=== PATIENT | female | born 1945 | race Caucasian/White ===

== ENCOUNTER 2017-01-25 09:56 | Emergency (ER) | payer MEDICARE, BC ==
[2017-01-25 10:57] VITALS: BP 135/71
--- NOTE | 2017-01-25 12:06 | RAD ---
HISTORY: Trauma, blurred vision COMPARISONS: None TECHNIQUE: Multiple contiguous axial CT scans were obtained of the head without intravenous contrast. FINDINGS: The study is limited by patient motion artifact. HEMORRHAGE/INFARCT: There is no hemorrhage or acute infarct. MASSES/SHIFT: There is no mass or shift. EXTRA-AXIAL SPACES: There are no extra-axial fluid collections. SULCI AND VENTRICLES: The sulci and ventricles are normal in size and position for the patient's stated age. CEREBRUM: There is a small, chronic lacunar infarct of the right thalamus. BRAINSTEM: There are no focal parenchymal abnormalities. CEREBELLUM: There are no focal parenchymal abnormalities. VESSELS: The vessels are grossly normal. PARANASAL SINUSES: The paranasal sinuses are clear. ORBITS: The orbits are unremarkable. BONES AND SOFT TISSUE: No bone or soft tissue abnormalities are noted. OTHER: None IMPRESSION: LIMITED STUDY. NO ACUTE INTRACRANIAL PATHOLOGY.
--- NOTE | 2017-01-25 12:12 | RAD ---
INDICATION: Fell backwards on steps yesterday. Pain, blurry vision. COMPARISON: November 20, 2010 MRI. TECHNIQUE: Multidetector CT images foramen magnum to lung apices without contrast. Multiplanar reformation. REPORT: Motion artifact degrades image quality. 3 mm degenerative C3-C4 anterolisthesis new compared with the 2011 exam. Negative for facet subluxation at any level. Negative for vertebral body or posterior element fracture. Negative for paravertebral hematoma. Diffuse degenerative spondylosis and facet joint osteoarthritis. Disc space narrowing is severe at C4-C5 through C6-C7 and less marked at the remaining levels. At C3-C4 the 3 mm degenerative anterolisthesis results in irregular contour of the central canal without significant stenosis. At C5-C6 and mild dorsal disc osteophyte complex results in mild impression on the ventral margin of the thecal sac. Uncinate process spurring and facet joint osteoarthritis results in mild LEFT foraminal stenosis. At C6-C7 uncinate process spurring and facet joint osteoarthritis results in mild RIGHT foraminal stenosis. IMPRESSION: 1. Negative for cervical spine fracture or facet subluxation. 2. 3 mm degenerative C3-C4 anterolisthesis new compared with the 2011 exam. 3. Multilevel degenerative spondylosis and facet joint osteoarthritis as described with significant interval progression compared with the 2011 MRI.
--- NOTE | 2017-01-25 12:51 | RAD ---
HISTORY: Subacute trauma, pain to sternum COMPARISONS: February 28, 2014 VIEWS: 4: Frontal dual-energy and lateral views of the chest. FINDINGS: CARDIOMEDIASTINAL SILHOUETTE: The cardiomediastinal silhouette is normal. KISHA: The kisha are normal. PLEURA: The costophrenic angles are sharp. No pleural abnormalities are noted. LUNG PARENCHYMA: There is hyperinflation with flattening of the diaphragm and expansion of the AP diameter of the chest. ABDOMEN: The upper abdomen is clear. There is no subphrenic gas. BONES AND SOFT TISSUES: There is a scoliotic curvature of the spine. Degenerative changes are noted. There is postsurgical change to the left shoulder. OTHER: None. IMPRESSION: HYPERINFLATION, CONSISTENT WITH COPD. NO ACTIVE CARDIOPULMONARY DISEASE. SCOLIOSIS.
--- NOTE | 2017-01-25 12:53 | RAD ---
HISTORY: Trauma, history of right hip arthroplasty COMPARISONS: CT dated February 27, 2014 VIEWS: 1, Single frontal view of the pelvis FINDINGS: BONE DENSITY: Normal. BONES: The patient is status post internal fixation of the right femur. There is minimal heterotopic bone formation. There is periprosthetic lucency along the fixation hardware. JOINTS: There is no arthropathy. ALIGNMENT: There is no dislocation. SOFT TISSUES: Unremarkable. OTHER FINDINGS: There is a scoliotic curvature of the spine with degenerative changes of the spine IMPRESSION: 1. STATUS POST INTERNAL FIXATION OF THE RIGHT FEMUR. 2. THERE IS PERIPROSTHETIC LUCENCY ALONG THE FIXATION HARDWARE CONSISTENT WITH LOOSENING. 3. NO ACUTE OSSEOUS INJURY. IF SYMPTOMS PERSIST, RECOMMEND REPEAT IMAGING.
--- NOTE | 2017-01-25 13:25 | ED ---
Yudy Ansari Thomas, scribed for Chung Grey MD on 01/25/17 at 1031 . Lower Extremity - HPI Summary HPI Summary: The pt is a 71 y/o F with Hx of Parkinsons disease presenting to the ED c/o L hip, sternum pain, and blurred vision s/p falling backwards on brick steps yesterday. She says that she missed a step when at the bottom of the stairs, causing her to fall and land on her head and left hip. She did not fall down multiples steps. The pt rates the pain /10. The pain is aggravated by lying for long periods of time and alleviated by nothing. The patient has treated the pain with Oxycodone FREELANCE DISPLAYER. She denies LOC from this fall. She does report a CHE earlier this AM as well as neck pain. However, she does note that in terms of her mental function, things feel fuzzy and things dont seem clear. She reports falling 6 weeks ago as well as many falls prior to that. Since the fall 6 weeks ago, she has experienced sternum pain, and that pain was exacerbated by the fall yesterday. PMHx: Parkinsons disease, spinal stenosis, scoliosis, back pain, R hip Fx. PSHx: L3-L4 laminectomy (2013), bursa surgery (2004). SHx: former smoker, occasional alcohol use, no illicit drug use. FHx: pulmonary fibrosis, dementia. She is accompanied by a younger male family member. She says that she is in the process of moving into assisted living due to her frequent falls. - History of Current Complaint Chief Complaint: EDBackInjuryPain Stated Complaint: FALL/BLURRY VISION/PAIN Time Seen by Provider: 01/25/17 10:18 Hx Obtained From: Patient, Family/Supervisor Shearing - younger male family member in the room Mechanism Of Injury: Fall From A Standing Position Onset of Pain: Immediate Onset/Duration: Days - fall was yesterday Severity Currently: Severe Pain Intensity: 7 Pain Scale Used: 0-10 Numeric Timing: Constant Location: Is Discrete @ - L hip, sternum Associated Signs And Symptoms: Positive: Other - POS: Blurred visoin, L hip pain , "things feel fuzzy" in her head, CHE; NEG: LOC Aggravating Factor(s): Other - Lying supine for extended periods Alleviating Factor(s): Nothing - Allergies/Home Medications Allergies/Adverse Reactions: Allergies Allergy/AdvReac Type Severity Reaction Status Date / Time Haloperidol [From Haldol] Allergy Unknown Verified 03/01/14 16:54 Reaction Details Metoclopramide [From Reglan] Allergy See Comment Verified 03/05/14 00:06 Quetiapine [From Seroquel] Allergy See Comment Verified 03/05/14 00:07 Risperidone [From Risperdal] Allergy Unknown Verified 03/01/14 16:54 Reaction Details antiemetics Allergy Unknown Uncoded 03/01/14 16:54 Reaction Details PMH/Surg Hx/FS Hx/Imm Hx Previously Healthy: No Endocrine/Hematology History: Reports: Hx Thyroid Disease Denies: Hx Diabetes Cardiovascular History: Denies: Hx Hypertension Respiratory History: Denies: Hx Chronic Obstructive Pulmonary Disease (COPD) History: Denies: Hx Dialysis Musculoskeletal History: Reports: Hx Back Problems - spinal stenosis, Hx Bursitis, Hx Orthopedic Injury - R hip fx 02/28, Hx Scoliosis, Other Musculoskeletal History - back pain Sensory History: Reports: Hx Contacts or Glasses Opthamlomology History: Reports: Hx Contacts or Glasses Neurological History: Reports: Hx Migraine, Other Neuro Impairments/Disorders - Parkinson's Disease Denies: Hx Dementia - Pt. complained of recent memory loss, Hx Seizures Psychiatric History: Reports: Hx Anxiety - Surgical History Surgery Procedure, Year, and Place: L3-L4 laminectomy-October 2013-[facility];. left shoulder arthroscopy x2 (2002);. "bursa" surgery (2004), trochanteric Hx Anesthesia Reactions: No Infectious Disease History: Denies: Traveled Outside the [place] in Last 30 Days - Family History Known Family History: Positive: Other - POS: pulmonary fibrosis, dementia - Social History Alcohol Use: Occasionally Alcohol Amount: 1/2 glass wine, 2-3 times per week Substance Use Type: Reports: None Smoking Status (MU): Former Smoker Type: Cigarettes Have You Smoked in the Last Year: No Review of Systems Negative: Fever Positive: Blurred Vision Positive: Other - POS: L hip pain, sternum pain Neurological: Other - POS: "feeling funny" in terms of mental function and "things don't seem clear"; NEG: LOC Positive: Headache All Other Systems Reviewed And Are Negative: Yes Physical Exam Triage Information Reviewed: Yes Vital Signs On Initial Exam: Initial Vitals Temp Pulse Resp BP Pulse Ox 98.7 F 78 16 131/93 100 01/25/17 10:03 01/25/17 10:03 01/25/17 10:03 01/25/17 10:03 01/25/17 10:03 Vital Signs Reviewed: Yes Appearance: Positive: Well-Appearing, No Pain Distress, Obese Skin: Positive: Warm, Skin Color Reflects Adequate Perfusion, Dry Head/Face: Positive: Normal Head/Face Inspection Eyes: Positive: Normal ENT: Positive: Normal ENT inspection Neck: Positive: Supple, Nontender Respiratory/Lung Sounds: Positive: Clear to Auscultation, Breath Sounds Present Cardiovascular: Positive: RRR Abdomen Description: Positive: Nontender, Soft Bowel Sounds: Positive: Present Musculoskeletal: Positive: Normal, Other - She is tender in the midline of her cervical spine. She is tender over her sacrum on the left side. Neurological: Positive: Other - She has Parkinsons movements. Psychiatric: Positive: Normal, Affect/Mood Appropriate Diagnostics - Vital Signs Vital Signs Temp Pulse Resp BP Pulse Ox 01/25/17 10:03 98.7 F 78 16 131/93 100 - Laboratory Lab Statement: Any lab studies that have been ordered have been reviewed, and results considered in the medical decision making process. - Radiology CXR Xray Interpretation: No Acute Changes - HYPERINFLATION, CONSISTENT WITH COPD. NO ACTIVE CARDIOPULMONARY DISEASE. SCOLIOSIS. ED Physician has reviewed this report and agrees. Radiology Interpretation Completed By: Radiologist XR Pelvis Xray Interpretation: No Acute Changes - 1. STATUS POST INTERNAL FIXATION OF THE RIGHT FEMUR. 2. THERE IS PERIPROSTHETIC LUCENCY ALONG THE FIXATION HARDWARE CONSISTENT WITH LOOSENING. 3. NO ACUTE OSSEOUS INJURY. IF SYMPTOMS PERSIST, RECOMMEND REPEAT IMAGING. ED Physician has reviewed this report and agrees. Radiology Interpretation Completed By: Radiologist - CT CT Brain CT Interpretation: No Acute Changes - Limited study, no acute intracranial pathology. ED Physician has reviewed this report and agrees. CT Interpretation Completed By: Radiologist CT C-Spine CT Interpretation: No Acute Changes - 1. Negative for cervical spine fracture or facet subluxation. 2. 3 mm degenerative C3-C4 anterolisthesis new compared with the 2011 exam. 3. Multilevel degenerative spondylosis and facet joint osteoarthritis as described with significant interval progression compared with the 2011 MRI. ED Physician has reviewed this report and agrees. CT Interpretation Completed By: Radiologist Lower Extremity Course/Dx - Course Course Of Treatment: Ms. León fell yesterday and had some blurriness of her vision today which is now gone. She recently fell and hurt her chest and had completely recuperated but has aggravated that. She also landed on her left buttock and that hurts and is tender and her neck is a little tender. Her CT of the head and neck showed no acute injury but clearly a lot of DJD as did her pelvic plain film. CXR showed no acute pathology. She takes ibuprofen and tylenol at home and I will give her tramadol for a few days. - Diagnoses Provider Diagnoses: Head injury, Cervical strain, acute Discharge - Discharge Plan Condition: Stable Disposition: HOME Prescriptions: traMADol TAB* [Ultram*] 25 mg PO Q6HR PRN #20 tab MDD 4 PRN Reason: Pain Patient Education Materials: Cervical Strain (ED), Head Injury (ED) Referrals: Hannah Gaona MD [Primary Care Provider] - If Needed Additional Instructions: Follow up with your doctor in 4-5 days if your symptoms have not improved. Return to the emergency department for any new or worsening symptoms. The documentation as recorded by the Yudy christensen Thomas accurately reflects the service I personally performed and the decisions made by , Chung Grey MD.
== END 2017-01-25 13:34 | disposition home or self-care (01) ==
LOC: ED 09:56
DX: S09.90XA Unspecified injury of head, initial encounter (principal); S16.1XXA Strain of muscle, fascia and tendon at neck level, initial encounter; Z87.891 Personal history of nicotine dependence; G20 Parkinson's disease; W19.XXXA Unspecified fall, initial encounter; Y92.9 Unspecified place or not applicable
CPT/HCPCS: 70450; 71020; 72125; 72170; 99282

== ENCOUNTER 2017-03-28 17:22 | Emergency (ER) | payer MEDICARE, BC ==
[2017-03-28] MEDS ORDERED: NS 0.9% 1000 ML* 1,000 ML IV ONE (18:50)
[2017-03-28] MEDS ORDERED: Ondansetron INJ* 2 MG/ML VIAL IV ONE (19:11)
[2017-03-28 19:18] LABS: Hematocrit 34 % (35-47); Hemoglobin 11.7 g/dl (12.0-16.0); Mean Corpuscular HGB Conc 35 g/dl (31-36); Mean Corpuscular Hemoglobin 33 pg (27-31); Mean Corpuscular Volume 95 fL (80-97); Mean Platelet Volume 8 um3 (7.4-10.4); Red Blood Count 3.55 10^6/ul (4.0-5.4); Red Cell Distribution Width 13 % (10.5-15); White Blood Count 6.2 10^3/ul (3.5-10.8)
[2017-03-28 19:30] LABS: ALT 3 U/L (7-52); AST 21 U/L (13-39); Alkaline Phosphatase 124 U/L (34-104); Anion Gap 6 mmol/L (2-11); BUN/Creatinine Ratio 27.6 (8-20); Blood Urea Nitrogen 16 mg/dL (6-24); CO2 Carbon Dioxide 25 mmol/L (22-32); Calcium 9.1 mg/dL (8.6-10.3); Chloride 95 mmol/L (101-111); EGFR African American 132.6 (>60); EGFR Non-African American 103.1 (>60); Globulin 2.6 g/dL (2-4); Glucose 125 mg/dL (70-100); Lipase < 10 U/L (11.0-82.0); Potassium 3.9 mmol/L (3.5-5.0); Sodium 126 mmol/L (133-145); Total Protein 6.6 g/dL (6.4-8.9)
[2017-03-28 19:37] LABS: Troponin I 0.05 ng/mL (<0.04)
[2017-03-28] MEDS ORDERED: Iohexol 300* (CONTRAST) 10 ML SDV IV ONE (20:01)
[2017-03-28 20:55] LABS: Urine Bacteria 1+ (Absent); Urine Bilirubin Negative (Negative); Urine Glucose Negative (Negative); Urine Nitrite Negative (Negative)
--- NOTE | 2017-03-28 21:13 | RAD ---
INDICATION: Diffuse abdominal pain and tenderness COMPARISON: None TECHNIQUE: Axial source images were obtained from the hemidiaphragms to the symphysis pubis following administration of oral and intravenous contrast. 61 mL Omnipaque 300 was utilized. Coronal and sagittal reconstructed images were acquired. Lung bases: The lung bases are clear. Liver: The liver is normal in size. There are no masses. There is no ductal dilatation. Gallbladder: There are no calcified gallstones. There is no evidence of wall thickening or pericholecystic fluid. Spleen: The spleen is normal in size. There are no masses. Pancreas: Limited evaluation. No focal pancreatic abnormalities. No ductal dilatation.. Adrenal glands: There is no evidence of adrenal mass. Kidneys: The kidneys are normal in size and position. There are prompt nephrograms and there is prompt excretion bilaterally. There are no renal parenchymal masses. There is no evidence of nephrolithiasis. Adenopathy: There is no evidence of adenopathy by size criteria. Fluid collections: There are no free or localized fluid collections. Vessels:There are no significant atherosclerotic changes involving the aorta. There is no focal aneurysm. The iliac vessels are normal in caliber. The IVC appears normal. GI tract: There are no acute CT bowel findings. There is a moderate-sized hiatal hernia. The upper GI tract is otherwise unremarkable. There is moderate retained stool. There are no obstructive findings. Pelvic organs: The uterus and adnexa appear normal Bladder: There are no bladder masses. There is mild bladder prolapse. Abdominal and pelvic soft tissues: The extraperitoneal abdominal and pelvic soft tissues appear normal.. Osseous structures: There are no acute osseous findings. There is a prominent levoscoliosis. There is right femoral nailing. Other: None IMPRESSION: NO ACUTE CT FINDINGS. NO MASS OR INFLAMMATORY CHANGES. THERE IS MODERATE RETAINED STOOL. THERE IS A MODERATE-SIZED HILAR HERNIA.
[2017-03-28] MEDS ORDERED: Levofloxacin TAB* 500 MG PO ONE (21:19)
--- NOTE | 2017-03-28 21:27 | ED ---
Yon Ansari Abhishek, scribed for Bartolome Salvador on 03/28/17 at 1946 . Abdominal Pain/Female - HPI Summary HPI Summary: This patient is a 71 year old F presenting to [facility] with a chief complaint of abd pain since 3 days ago. The patient rates the pain 8/10 in severity. Symptoms aggravated by nothing. Symptoms alleviated by nothing. Patient reports nausea, and vomiting since today. Patient denies CP. - History of Current Complaint Chief Complaint: EDAbdPain Stated Complaint: N/V Time Seen by Provider: 03/28/17 18:03 Hx Obtained From: Patient Timing: Days - 3 days Severity Initially: Severe Severity Currently: Severe Pain Intensity: 8 Pain Scale Used: 0-10 Numeric Location: Diffuse - center abd Aggravating Factor(s): Nothing Alleviating Factor(s): Nothing Associated Signs and Symptoms: Positive: Nausea, Vomiting. Negative: Chest Pain Allergies/Adverse Reactions: Allergies Allergy/AdvReac Type Severity Reaction Status Date / Time Haloperidol [From Haldol] Allergy Unknown Verified 03/01/14 16:54 Reaction Details Metoclopramide [From Reglan] Allergy See Comment Verified 03/05/14 00:06 Quetiapine [From Seroquel] Allergy See Comment Verified 03/05/14 00:07 Risperidone [From Risperdal] Allergy Unknown Verified 03/01/14 16:54 Reaction Details antiemetics Allergy Unknown Uncoded 03/01/14 16:54 Reaction Details PMH/Surg Hx/FS Hx/Imm Hx Endocrine/Hematology History: Reports: Hx Thyroid Disease Denies: Hx Diabetes Cardiovascular History: Denies: Hx Hypertension Respiratory History: Denies: Hx Chronic Obstructive Pulmonary Disease (COPD) History: Denies: Hx Dialysis Musculoskeletal History: Reports: Hx Back Problems - spinal stenosis, Hx Bursitis, Hx Orthopedic Injury - R hip fx 02/28, Hx Scoliosis, Other Musculoskeletal History - back pain Sensory History: Reports: Hx Contacts or Glasses Opthamlomology History: Reports: Hx Contacts or Glasses Neurological History: Reports: Hx Migraine, Other Neuro Impairments/Disorders - Parkinson's Disease Denies: Hx Dementia - Pt. complained of recent memory loss, Hx Seizures Psychiatric History: Reports: Hx Anxiety - Surgical History Surgery Procedure, Year, and Place: L3-L4 laminectomy-October 2013-[facility];. left shoulder arthroscopy x2 (2003);. "bursa" surgery (2005), trochanteric Hx Anesthesia Reactions: No Infectious Disease History: No Infectious Disease History: Denies: Traveled Outside the [place] in Last 30 Days - Family History Known Family History: Positive: Other - POS: pulmonary fibrosis, dementia - Social History Alcohol Use: Occasionally Alcohol Amount: 1/2 glass wine, 2-3 times per week Substance Use Type: Reports: None, Prescribed Smoking Status (MU): Former Smoker Type: Cigarettes Have You Smoked in the Last Year: No Review of Systems Constitutional: Negative Eyes: Negative ENT: Negative Negative: Chest Pain Respiratory: Negative Positive: Abdominal Pain - diffuse and central, Vomiting - since today, Nausea Genitourinary: Negative Musculoskeletal: Negative Skin: Negative Neurological: Negative Psychological: Normal All Other Systems Reviewed And Are Negative: Yes Physical Exam - Summary Physical Exam Summary: Appearance: Well appearing, no pain distress Skin: warm, dry, reflects adequate perfusion Head/face: normal Eyes: EOMI, JOSE ENT: normal Neck: supple, non-tender Respiratory: CTA, breath sounds present Cardiovascular: RRR, pulses symmetrical Abdomen: diffuse tenderness Bowel: present Musculoskeletal: normal, strength/ROM intact Neuro: normal, sensory motor intact, A&Ox3 Triage Information Reviewed: Yes Vital Signs On Initial Exam: Initial Vitals BP 152/87 03/28/17 17:33 Vital Signs Reviewed: Yes - [place] Coma Scale Coma Scale Total: 15 Diagnostics - Vital Signs Vital Signs Temp Pulse Resp BP Pulse Ox 03/28/17 19:00 65 144/86 99 03/28/17 18:30 65 130/79 98 03/28/17 18:00 62 153/86 98 03/28/17 17:35 98.2 F 63 18 152/87 97 03/28/17 17:33 152/87 - Laboratory Lab Results: Lab Results 03/28/17 03/28/17 03/28/17 Range/Units 19:04 19:04 19:04 WBC 6.2 (3.5-10.8) 10^3/ul RBC 3.55 L (4.0-5.4) 10^6/ul Hgb 11.7 L (12.0-16.0) g/dl Hct 34 L (35-47) % MCV 95 (80-97) fL MCH 33 H (27-31) pg MCHC 35 (31-36) g/dl RDW 13 (10.5-15) % Plt Count 223 (150-450) 10^3/ul MPV 8 (7.4-10.4) um3 Neut % (Auto) 82.8 (38-83) % Lymph % (Auto) 11.0 L (25-47) % [place] % (Auto) 5.5 (1-9) % Eos % (Auto) 0.2 (0-6) % Baso % (Auto) 0.5 (0-2) % Absolute Neuts (auto) 5.1 (1.5-7.7) 10^3/ul Absolute Lymphs (auto) 0.7 L (1.0-4.8) 10^3/ul Absolute Monos (auto) 0.3 (0-0.8) 10^3/ul Absolute Eos (auto) 0 (0-0.6) 10^3/ul Absolute Basos (auto) 0 (0-0.2) 10^3/ul Absolute Nucleated RBC 0 10^3/ul Nucleated RBC % 0 INR (Anticoag Therapy) 0.98 (0.89-1.11) APTT 28.4 (26.0-36.3) seconds Sodium 126 L (133-145) mmol/L Potassium 3.9 (3.5-5.0) mmol/L Chloride 95 L (101-111) mmol/L Carbon Dioxide 25 (22-32) mmol/L Anion Gap 6 (2-11) mmol/L BUN 16 (6-24) mg/dL Creatinine 0.58 (0.51-0.95) mg/dL Est GFR ( Amer) 132.6 (>60) Est GFR (Non-Af Amer) 103.1 (>60) BUN/Creatinine Ratio 27.6 H (8-20) Glucose 125 H (70-100) mg/dL Calcium 9.1 (8.6-10.3) mg/dL Total Bilirubin 0.90 (0.2-1.0) mg/dL AST 21 (13-39) U/L ALT 3 L (7-52) U/L Alkaline Phosphatase 124 H (34-104) U/L Troponin I 0.05 H* (<0.04) ng/mL Total Protein 6.6 (6.4-8.9) g/dL Albumin 4.0 (3.2-5.2) g/dL Globulin 2.6 (2-4) g/dL Albumin/Globulin Ratio 1.5 (1-3) Lipase < 10 L (11.0-82.0) U/L Result Diagrams: 03/28/17 19:04 03/28/17 19:04 Lab Statement: Any lab studies that have been ordered have been reviewed, and results considered in the medical decision making process. - CT CT A/P CT Interpretation Completed By: Radiologist - CT A/P reveals NO ACUTE CT FINDINGS. NO MASS OR INFLAMMATORY CHANGES. THERE IS MODERATE RETAINED STOOL. THERE IS A MODERATE-SIZED HILAR HERNIA. ED physician has reviewed this radiology report and agrees. - EKG 1910 EKG Rhythm: Sinus Rhythm EKG Interpretation: An EKG reveals sinus rhythm, no acute changes, and 67 BPM Abdominal Pain Fem Course/Dx - Course Course Of Treatment: This patient is a 71 year old F [facility] with a chief complaint of abd pain since 3 days ago. Patient reports nausea, and vomiting since today. Patient denies CP. CT A/P reveals NO ACUTE CT FINDINGS. NO MASS OR INFLAMMATORY CHANGES. THERE IS MODERATERETAINED STOOL. THERE IS A MODERATE-SIZED HILAR HERNIA. An EKG reveals sinus rhythm no acute changes, at 1910, and 67 BPM. Patient is signed out to Dr. Sanford, pending disposition, awaiting repeat troponin. Dx is elevated troponin, UTI, and abd pain. The patient is agreeable with this plan. - Diagnoses Differential Diagnosis: Positive: Appendicitis, Diverticulitis, Peptic Ulcer Disease, Renal Colic, Urinary Tract Infection Provider Diagnoses: UTI (urinary tract infection), Abdominal pain, Elevated troponin Discharge - Discharge Plan Condition: Stable Disposition: OTHER Discharge Disposition Comment: Patient signed out to Dr. Sanford, pending disposition, awaiting repeat Trop Referrals: Hannah Gaona MD [Primary Care Provider] - The documentation as recorded by the Yon christensen Abhishek accurately reflects the service I personally performed and the decisions made by , Bartolome Salvador.
[2017-03-29 00:36] VITALS: BP 167/91
--- NOTE | 2017-03-29 03:56 | ED ---
Sapphire Ansari Edward, scribed for Evelina Sanford MD on 03/28/17 at 2321 . Progress - Progress Note Progress Note: Pt signed out by Dr. Salvador pending repeat Troponin. Repeat Troponin is the same at 0.05. Re-Evaluation - Re-Evaluation 1 Re-Evaluation Time: 23:42 Comment: Discuss plan to d/c Course/Dx - Course Course Of Treatment: This patient is a 71 year old F presenting to [facility] accompanied by_ with a chief complaint of abd pain since 3 days ago. Patient reports nausea, and vomiting since today. Patient denies CP. CT A/P reveals NO ACUTE CT FINDINGS. NO MASS OR INFLAMMATORY CHANGES. THERE IS MODERATERETAINED STOOL. THERE IS A MODERATE-SIZED HILAR HERNIA. An EKG reveals sinus rhythm no acute changes, at 1910, and 67 BPM. Patient is signed out to Dr. Sanford, pending disposition, awaiting repeat troponin. Dx is elevated troponin, UTI, and abd pain. The patient is agreeable with this plan. Repeat troponin is the same at 0.05. Pt will be d/c home. - Diagnoses Provider Diagnoses: UTI (urinary tract infection), Abdominal pain, Elevated troponin The documentation as recorded by the Sapphire christensen Edward accurately reflects the service I personally performed and the decisions made by Claribel del rosario Norma, MD.
== END 2017-03-29 00:36 | disposition home or self-care (01) ==
LOC: ED 17:22
DX: N39.0 Urinary tract infection, site not specified (principal); R10.9 Unspecified abdominal pain; R79.89 Other specified abnormal findings of blood chemistry
CPT/HCPCS: 36415; 74177; 80053; 81003; 81015; 83605; 83690; 84484; 85025; 85610; 85730; 87077; 87086; 93005; 96374; 99283; Q9967

== ENCOUNTER → 2019-07-06 13:49 | Emergency (ER) | payer MEDICARE, BC ==
[2019-07-06 14:15] LABS: ABS Lymphocytes 0.6 10^3/ul (1.0-4.8); ABS Monocytes 0.3 10^3/ul (0-0.8); ABS Neutrophils 3.4 10^3/ul (1.5-7.7); Eosinophil % 0.4 %; Hematocrit 32 % (35-47); Hemoglobin 11.1 g/dL (12.0-16.0); Lymphocyte % 14.7 %; Mean Corpuscular HGB Conc 35 g/dL (31-36); Mean Corpuscular Hemoglobin 34 pg (27-31); Mean Corpuscular Volume 97 fL (80-97); Mean Platelet Volume 7.3 fL (7.4-10.4); Nucleated Red Blood Cells % 0.1; Platelet Count 197 10^3/uL (150-450); Red Blood Count 3.29 10^6 /uL (3.70-4.87); Red Cell Distribution Width 13 % (10-15); White Blood Count 4.4 10^3/uL (3.5-10.8)
[2019-07-06 14:36] LABS: ALT 4 U/L (7-52); AST 18 U/L (13-39); Albumin 4.2 g/dL (3.2-5.2); Albumin/Globulin Ratio 1.9 (1-3); Alkaline Phosphatase 100 U/L (34-104); Anion Gap 8 mmol/L (2-11); BUN/Creatinine Ratio 25.6 (8-20); Blood Urea Nitrogen 21 mg/dL (6-24); CO2 Carbon Dioxide 23 mmol/L (22-32); Calcium 8.7 mg/dL (8.6-10.3); Chloride 95 mmol/L (101-111); EGFR African American 83.2 (>60); EGFR Non-African American 68.7 (>60); Globulin 2.2 g/dL (2-4); Glucose 97 mg/dL (70-100); Potassium 4.3 mmol/L (3.5-5.0); Sodium 126 mmol/L (135-145); Total Protein 6.4 g/dL (6.4-8.9)
--- NOTE | 2019-07-06 15:01 | ED ---
Complex/Multi-Sys Presentation - HPI Summary HPI Summary: 73 year old F presenting to [facility] via EMS with a chief complaint of anxiety, depression, and difficulty urinating since yesterday. The patient rates the pain 10/10 in severity. Symptoms aggravated by nothing. Symptoms alleviated by nothing. Patient reports abdominal pain secondary to being unable to urinate, thoughts of harming herself last night, and frustration with her overnight aide. Patient denies dysuria, fever, chills, or vomiting. The patient states that she ate breakfast then went back to bed. She denies any cigarette or alcohol use. Medication list reviewed. Allergy list reviewed. Home Medications Medication Instructions Recorded Confirmed Type Bupropion HCl [Wellbutrin Xl] 150 mg PO DAILY 01/18/14 03/01/14 History Carbidopa-Levodopa [Sinemet Cr] 1 tab PO BEDTIME 01/18/14 03/01/14 History Carbidopa/Levodop 25/100 MG(*) 1 tab PO SEE INSTRUCTIONS 01/18/14 03/01/14 History [Sinemet 25/100 TAB(*)] Entacapone (NF) [Comtan (NF)] 0.5 tab PO SEE INSTRUCTIONS 01/18/14 03/01/14 History LORazepam TAB(*) [Ativan TAB(*)] 0.5 mg PO BID PRN 01/18/14 03/01/14 History Levothyroxine Sodium [Synthroid] 112 mcg PO SEE INSTRUCTIONS 01/18/14 03/01/14 History ZOLMitriptan [Zomig] 1 tab PO DAILY PRN 01/18/14 03/02/14 History buPROPion TAB* [Wellbutrin TAB*] 75 mg PO DAILY PRN 01/18/14 03/02/14 History Amantadine CAP* [Symmetrel CAP*] 100 mg PO BID 03/01/14 03/01/14 History Calcium 600 1 tab PO DAILY 03/01/14 03/01/14 History Calcium Polycarbophil TAB* 625 mg PO BID 03/01/14 03/01/14 History [Fibercon TAB*] HYDROmorphone TAB* [Dilaudid TAB*] 2 mg PO Q3H PRN 03/01/14 03/01/14 History Ibuprofen TAB* [Motrin TAB*] 600 mg PO QID PRN 03/01/14 03/01/14 History Polyethylene Glycol 3350* 17 gm PO DAILY 03/01/14 03/01/14 History [Miralax*] Calcium Carbonate CHEW TAB* [Tums*] 1 tab PO QID PRN 03/02/14 03/02/14 History Carbidopa/Levodopa [Carbidopa-Levo 2 tab PO BID 03/02/14 03/02/14 History 25-100 mg Odt] Magnesium [Magnesium 250 mg] 1 tab PO DAILY 03/02/14 03/02/14 History Melatonin 1 tab PO BEDTIME PRN 03/02/14 03/02/14 History fentaNYL [Duragesic] 1 patch TRANSDERM Q72H 03/02/14 03/02/14 History traMADol TAB* [Ultram*] 25 mg PO Q6HR PRN #20 tab MDD 4 01/25/17 Rx Ciprofloxacin TAB* [Cipro 500 MG 500 mg PO BID #10 tab 03/28/17 Rx TAB*] - History Of Current Complaint Chief Complaint: EDUrogenitalProblems Time Seen by Provider: 07/06/19 13:50 Hx Obtained From: Patient, EMS Onset/Duration: Lasting Hours Timing: Constant Severity Currently: Severe Aggravating Factor(s): None Alleviating Factor(s): None Associated Signs And Symptoms: Positive: Abdominal Pain. Negative: Vomiting, Dysuria, Fever - Allergies/Home Medications Allergies/Adverse Reactions: Allergies Allergy/AdvReac Type Severity Reaction Status Date / Time haloperidol [From Haldol] Allergy See Comment Verified 07/06/19 15:25 metoclopramide [From Reglan] Allergy See Comment Verified 07/06/19 15:25 quetiapine [From Seroquel] Allergy See Comment Verified 07/06/19 15:25 risperidone [From Risperdal] Allergy See Comment Verified 07/06/19 15:25 antiemetics Allergy Unknown Uncoded 03/01/14 16:54 Reaction Details Home Medications: Home Medications Amantadine CAP* [Symmetrel CAP*] 100 mg PO BID 03/01/14 [History Confirmed 07/06] Polyethylene Glycol 3350* [Miralax*] 17 gm PO DAILY 03/01/14 [History Confirmed 07/06/19] Melatonin 3 mg PO BEDTIME PRN 03/02/14 [History Confirmed 07/06/19] Acetaminophen [Acetaminophen Extra Strength] 1,000 mg PO TID 07/06/19 [History Confirmed 07/06/19] Artificial Tears* 15 ML BTL [Polyvinyl Alcohol 1.4% OPTH*] 1 drop BOTH EYES BID PRN 07/06/19 [History Confirmed 07/06/19] Bisacodyl 10 mg SUPP [Dulcolax Supp*] 10 mg PO DAILY PRN 07/06/19 [History Confirmed 07/06/19] Carbidopa/Levodop 25/100 MG(*) [Sinemet 25/100 TAB(*)] 0.5 tab PO .0730, 1400, 1700 07/06/19 [History Confirmed 07/06/19] Carbidopa/Levodop CR 50/200(*) [Sinemet CR 50/200(*)] 1.5 tab PO 2100 07/06/19 [ History Confirmed 07/06/19] Cholecalciferol CAP/TAB(NF) [Vitamin D3 CAP/TAB (NF)] 1,000 unit PO DAILY [History Confirmed 07/06/19] Cyanocobalamin TAB* [Vitamin B12 TAB*] 1,000 mcg PO DAILY 07/06/19 [History Confirmed 07/06/19] Docusate CAP* [Colace Cap*] 100 mg PO DAILY 07/06/19 [History Confirmed 07/06/19 ] Lactulose 30 ml PO DAILY PRN 07/06/19 [History Confirmed 07/06/19] Levothyroxine TAB* [Synthroid TAB*] 112 mcg PO .5DAYS/WEEK 07/06/19 [History Confirmed 07/06/19] Mirtazapine TAB* [Remeron TAB*] 30 mg PO DAILY 07/06/19 [History Confirmed 07/06] Omeprazole CAP (NF) [Prilosec CAP* 20 MG] 20 mg PO DAILY 07/06/19 [History Confirmed 07/06/19] PARoxetine HCL TAB* [Paxil TAB*] 30 mg PO DAILY 07/06/19 [History Confirmed ] Prednisolone Acetate/Pf [Prednisolone Acet 1% Eye Drop] 1 drop RIGHT EYE BEDTIME 07/06/19 [History Confirmed 07/06/19] Rytary 48.75/195 2 cap PO .0730, 1400, 1700 07/06/19 [History Confirmed 07/06/19 ] Sennosides [Senna] 8.6 mg PO DAILY 07/06/19 [History Confirmed 07/06/19] Tamsulosin CAP* [Flomax CAP*] 0.4 mg PO DAILY 07/06/19 [History Confirmed ] clonazePAM TAB(*) [KlonoPIN TAB(*)] 1 mg PO BID 07/06/19 [History Confirmed ] lisinopriL [Lisinopril 2.5 MG-] 2.5 mg PO DAILY 07/06/19 [History Confirmed ] PMH/Surg Hx/FS Hx/Imm Hx Endocrine/Hematology History: Reports: Hx Thyroid Disease Denies: Hx Diabetes Cardiovascular History: Denies: Hx Hypertension Respiratory History: Denies: Hx Chronic Obstructive Pulmonary Disease (COPD) History: Denies: Hx Dialysis Musculoskeletal History: Reports: Hx Back Problems - spinal stenosis, Hx Bursitis, Hx Orthopedic Injury - R hip fx 02/28, Hx Scoliosis, Other Musculoskeletal History - back pain Sensory History: Reports: Hx Contacts or Glasses Opthamlomology History: Reports: Hx Contacts or Glasses Neurological History: Reports: Hx Migraine, Other Neuro Impairments/Disorders - Parkinson's Disease Denies: Hx Dementia - Pt. complained of recent memory loss, Hx Seizures Psychiatric History: Reports: Hx Anxiety - Surgical History Surgery Procedure, Year, and Place: RIGHT HIP Hx Anesthesia Reactions: No Infectious Disease History: No Infectious Disease History: Denies: Traveled Outside the [place] in Last 30 Days - Family History Known Family History: Positive: Other - POS: pulmonary fibrosis, dementia - Social History Alcohol Use: Rare Alcohol Amount: 1/2 glass wine, 2-3 times per week Substance Use Type: Reports: None Smoking Status (MU): Former Smoker Type: Cigarettes Have You Smoked in the Last Year: No Review of Systems Negative: Fever, Chills Positive: Abdominal Pain. Negative: Vomiting Positive: other - Urinary retention. Negative: dysuria Positive: Anxious, Depressed All Other Systems Reviewed And Are Negative: Yes Physical Exam - Summary Physical Exam Summary: Constitutional: Well-developed, Well-nourished, Alert. (-) Distressed Skin: Warm, Dry HENT: Normocephalic; Atraumatic Eyes: Conjunctiva normal Neck: Musculoskeletal ROM normal neck. (-) JVD, (-) Stridor, (-) Tracheal deviation Cardio: Rhythm regular, rate normal, Heart sounds normal; Intact distal pulses; Radial pulses are 2+ and symmetric. (-) Murmur Pulmonary/Chest wall: Effort normal. (-) Respiratory distress, (-) Wheezes, (-) Rales Abd: Soft, suprapubic tenderness, (-) Distension, (-) Guarding, (-) Rebound Musculoskeletal: (-) Edema Lymph: (-) Cervical adenopathy Neuro: Alert, Oriented x3 Psych: Flat affect Triage Information Reviewed: Yes Vital Signs On Initial Exam: Initial Vitals Temp Pulse Resp BP Pulse Ox 98.7 F 73 18 135/90 100 07/06/19 13:58 07/06/19 13:58 07/06/19 13:58 07/06/19 13:58 07/06/19 13:58 Vital Signs Reviewed: Yes Procedures - Sedation Patient Received Moderate/Deep Sedation with Procedure: No Diagnostics - Vital Signs Vital Signs Temp Pulse Resp BP Pulse Ox 07/06/19 14:03 73 135/90 100 07/06/19 14:00 72 100 07/06/19 13:58 98.7 F 73 18 135/90 100 - Laboratory Lab Results: Lab Results 07/06/19 07/06/19 Range/Units 13:58 13:58 WBC 4.4 (3.5-10.8) 10^3/uL RBC 3.29 L (3.70-4.87) 10^6 /uL Hgb 11.1 L (12.0-16.0) g/dL Hct 32 L (35-47) % MCV 97 (80-97) fL MCH 34 H (27-31) pg MCHC 35 (31-36) g/dL RDW 13 (10-15) % Plt Count 197 (150-450) 10^3/uL MPV 7.3 L (7.4-10.4) fL Neut % (Auto) 77.4 % Lymph % (Auto) 14.7 % [place] % (Auto) 6.9 % Eos % (Auto) 0.4 % Baso % (Auto) 0.6 % Absolute Neuts (auto) 3.4 (1.5-7.7) 10^3/ul Absolute Lymphs (auto) 0.6 L (1.0-4.8) 10^3/ul Absolute Monos (auto) 0.3 (0-0.8) 10^3/ul Absolute Eos (auto) 0.0 (0-0.6) 10^3/ul Absolute Basos (auto) 0.0 (0-0.2) 10^3/ul Absolute Nucleated RBC 0.0 10^3/ul Nucleated RBC % 0.1 Sodium 126 L (135-145) mmol/L Potassium 4.3 (3.5-5.0) mmol/L Chloride 95 L (101-111) mmol/L Carbon Dioxide 23 (22-32) mmol/L Anion Gap 8 (2-11) mmol/L BUN 21 (6-24) mg/dL Creatinine 0.82 (0.51-0.95) mg/dL Est GFR ( Amer) 83.2 (>60) Est GFR (Non-Af Amer) 68.7 (>60) BUN/Creatinine Ratio 25.6 H (8-20) Glucose 97 (70-100) mg/dL Calcium 8.7 (8.6-10.3) mg/dL Total Bilirubin 0.90 (0.2-1.0) mg/dL AST 18 (13-39) U/L ALT 4 L (7-52) U/L Alkaline Phosphatase 100 (34-104) U/L Total Protein 6.4 (6.4-8.9) g/dL Albumin 4.2 (3.2-5.2) g/dL Globulin 2.2 (2-4) g/dL Albumin/Globulin Ratio 1.9 (1-3) Salicylates Pending Acetaminophen Pending Serum Alcohol Pending Result Diagrams: 07/06/19 13:58 07/06/19 13:58 Lab Statement: Any lab studies that have been ordered have been reviewed, and results considered in the medical decision making process. Complex Multi-Symp Course/Dx Course Of Treatment: Patient is here with anxiety, depression, and urinary retention. Patient did have suprapubic tenderness with retained urine of roughly 250 cc. Patient is on multiple medications with anticholinergic side effect which is likely the etiology of her symptoms. Patient had a straight catheter and UA which showed no evidence UTI. Patient's labs were performed hyponatremia at her baseline. Patient's main concern was for mental health so a mental health evaluation was performed and they deemed her safe for discharge. - Diagnoses Provider Diagnoses: Depression, Hyponatremia, Urinary retention - Physician Notifications Discussed Care Of Patient With: Rico Garcia Time Discussed With Above Provider: 19:19 Instructed by Provider To: Other - 1918 - Patient's case was reviewed by Dr. Garcia, patient to be discharged to home. Discharge ED - Sign-Out/Discharge Documenting (check all that apply): Patient Departure - Discharge Plan Condition: Stable Disposition: HOME Patient Education Materials: Paroxetine (By mouth), Parkinson Disease (ED) Referrals: Hannah Gaona MD [Primary Care Provider] - - Billing Disposition and Condition Condition: STABLE Disposition: Home - Attestation Statements Document Initiated by Scribe: Yes Documenting Scribe: Yajaira Newberry Provider For Whom Wendieibe is Documenting (Include Credential): Yury García MD Scribe Attestation: I, Yajaira Newberry, scribed for Yury García MD on at [id number]. Scribe Documentation Reviewed: Yes Provider Attestation: The documentation as recorded by the amparo, Yajaira Newberry accurately reflects the service I personally performed and the decisions made by me, Yury García MD Status of Scribe Document: Viewed
[2019-07-06 15:02] LABS: Acetaminophen < 15 mcg/mL; Alcohol < 10 mg/dL (<10); Salicylate < 2.50 mg/dL (<30)
[2019-07-06 16:22] LABS: Urine Appearance Clear; Urine Bilirubin Negative (Negative); Urine Blood Negative (Negative); Urine Color Yellow; Urine Glucose Negative (Negative); Urine Ketones Trace (Negative); Urine Nitrite Negative (Negative); Urine Protein Negative (Negative); Urine Specific Gravity 1.014 (1.010-1.030); Urine Urobilinogen Negative (Negative)
[2019-07-06 16:42] LABS: Urine Benzodiazepine Screen None Detected (None Detect); Urine Opiates Screen None Detected (None Detect)
[2019-07-06 19:02] VITALS: BP 141/91
== END | disposition home or self-care (01) ==
LOC: ED 13:49
DX: F32.9 Major depressive disorder, single episode, unspecified (principal); E87.1 Hypo-osmolality and hyponatremia; R33.9 Retention of urine, unspecified; R10.30 Lower abdominal pain, unspecified; E07.9 Disorder of thyroid, unspecified; F41.9 Anxiety disorder, unspecified; G20 Parkinson's disease; Z88.8 Allergy status to other drugs, medicaments and biological substances; Z87.891 Personal history of nicotine dependence
CPT/HCPCS: 36415; 80053; 80307; 80320; 80329; 81003; 85025; 99285; G0480

== ENCOUNTER 2019-10-04 08:35 | Inpatient (IN) ==
[2019-10-04] MEDS: NS 0.9% 1000 ml BAG 1,000 ML IV ONE ×2 (08:50→09:40)
[2019-10-04 09:23] LABS: ABS Lymphocytes 0.2 10^3/ul (1.0-4.8); ABS Monocytes 0.7 10^3/ul (0-0.8); Hematocrit 38 % (35-47); Hemoglobin 12.7 g/dL (12.0-16.0); Lymphocyte % 2.5 %; Mean Corpuscular HGB Conc 34 g/dL (31-36); Mean Corpuscular Hemoglobin 34 pg (27-31); Mean Corpuscular Volume 100 fL (80-97); Mean Platelet Volume 8.4 fL (7.4-10.4); Platelet Count 179 10^3/uL (150-450); Red Blood Count 3.76 10^6 /uL (3.70-4.87); Red Cell Distribution Width 13 % (10-15); White Blood Count 9.3 10^3/uL (3.5-10.8)
[2019-10-04 09:37] LABS: ALT 4 U/L (7-52); AST 35 U/L (13-39); Albumin 3.9 g/dL (3.2-5.2); Albumin/Globulin Ratio 1.8 (1-3); Alkaline Phosphatase 118 U/L (34-104); Anion Gap 14 mmol/L (2-11); BUN/Creatinine Ratio 20.2 (8-20); Blood Urea Nitrogen 53 mg/dL (6-24); C Reactive Protein 113.86 mg/L (<8.01); CO2 Carbon Dioxide 18 mmol/L (22-32); Calcium 8.6 mg/dL (8.6-10.3); Chloride 97 mmol/L (101-111); EGFR African American 21.7 (>60); EGFR Non-African American 17.9 (>60); Globulin 2.2 g/dL (2-4); Glucose 109 mg/dL (70-100); Magnesium 2.8 mg/dL (1.9-2.7); Potassium 5.7 mmol/L (3.5-5.0); Sodium 129 mmol/L (135-145); Total Protein 6.1 g/dL (6.4-8.9)
[2019-10-04 09:39] LABS: Urine Appearance Cloudy; Urine Bilirubin Negative (Negative); Urine Blood Negative (Negative); Urine Color Yellow; Urine Glucose Negative (Negative); Urine Ketones Trace (Negative); Urine Nitrite Negative (Negative); Urine Protein Negative (Negative); Urine Specific Gravity 1.014 (1.010-1.030); Urine Urobilinogen Negative (Negative)
[2019-10-04 09:39] LABS: Troponin I 0.03 ng/mL (<0.03)
[2019-10-04 10:01] LABS: TSH (Thyroid Stimulating Horm) 5.61 mcIU/mL (0.34-5.60)
[2019-10-04 10:06] LABS: Urine Bacteria 3+ (Absent); Urine Red Blood Cell Trace(0-2/hpf) (Absent); Urine Squamous Epithelial Cell Present (Absent); Urine White Blood Cell 1+(6-10/hpf) (Absent)
[2019-10-04 10:08] LABS: Creatine Kinase 98 U/L (10-223)
[2019-10-04] MEDS ORDERED: Piperacillin/Tazobac ADVAN(*) 3.375 GM in NS 0.9% 100 ml BAG 100 ML IVPB ONE (11:19)
[2019-10-04] MEDS ORDERED: NS 0.9% 1000 ml BAG 1,000 ML IV SCH (11:30)
[2019-10-04] MEDS ORDERED: CARBIDOPA PO SCH (11:45)
[2019-10-04] MEDS ORDERED: LEVODOPA PO SCH (11:45)
[2019-10-04] MEDS ORDERED: Zosyn per Pharmacy NOTE FOLLOW UP SCH (12:00)
[2019-10-04] MEDS ORDERED: Carbidopa/Levodop 25/100 MG TAB PO SCH (12:00)
[2019-10-04] MEDS: NS 0.9% 1000 ml BAG 2,000 ML IV ONE ×2 (12:39→12:40)
[2019-10-04 13:03] LABS: Blood Urea Nitrogen 56 mg/dL (6-24); CO2 Carbon Dioxide 16 mmol/L (22-32); Calcium 7.8 mg/dL (8.6-10.3); Chloride 104 mmol/L (101-111); EGFR African American 23.7 (>60); EGFR Non-African American 19.6 (>60); Glucose 89 mg/dL (70-100); Sodium 132 mmol/L (135-145)
[2019-10-04 13:10] LABS: Troponin I 0.03 ng/mL (<0.03)
[2019-10-04 14:23] LABS: Hematocrit 18 % (35-47); Hemoglobin 6.1 g/dL (12.0-16.0); Mean Corpuscular HGB Conc 34 g/dL (31-36); Mean Corpuscular Hemoglobin 35 pg (27-31); Mean Corpuscular Volume 103 fL (80-97); Mean Platelet Volume 8.2 fL (7.4-10.4); Platelet Count 93 10^3/uL (150-450); Red Blood Count 1.78 10^6 /uL (3.70-4.87); Red Cell Distribution Width 14 % (10-15); White Blood Count 3.9 10^3/uL (3.5-10.8)
[2019-10-04] MEDS: Lactated Ringers 1000 ml BAG 1,000 ML IV SCH ×2 (14:34→21:25)
[2019-10-04 14:49] LABS: ABS Lymphocytes 0.1 10^3/ul (1.0-4.8); ABS Monocytes 0.3 10^3/ul (0-0.8); Lymphocyte % 2.4 %; Nucleated Red Blood Cells % 0.1
[2019-10-04 15:11] LABS: Anion Gap 12 mmol/L (2-11)
[2019-10-04 15:20] LABS: Hematocrit 35 % (35-47); Hemoglobin 11.5 g/dL (12.0-16.0); Mean Corpuscular HGB Conc 32 g/dL (31-36); Mean Corpuscular Hemoglobin 34 pg (27-31); Mean Corpuscular Volume 105 fL (80-97); Mean Platelet Volume 8.8 fL (7.4-10.4); Platelet Count 150 10^3/uL (150-450); Red Blood Count 3.36 10^6 /uL (3.70-4.87); Red Cell Distribution Width 15 % (10-15); White Blood Count 6.1 10^3/uL (3.5-10.8)
[2019-10-04] MEDS: Carbidopa/Levodop 25/100 MG TAB PO SCH ×2 (17:06→21:28)
[2019-10-04] MEDS: ZOSYN 3.375 GM Q12H per EXTENDED INFUSION IV SCH (17:12)
[2019-10-04] MEDS: Chlorhexidine MOUTHWASH 0.12% 15 ML UDC SWISH SPIT SCH ×2 (18:04→22:34)
[2019-10-04] MEDS: Dextran 70/Hypromellose Tears Eye Drops 15 ml BTL (for Artificials Tears) BOTH EYES SCH (21:28)
[2019-10-04] MEDS: Carbidopa/Levodop CR 50/200 TAB.CR PO SCH (21:29)
[2019-10-04 22:03] LABS: Hematocrit 33 % (35-47); Hemoglobin 11.3 g/dL (12.0-16.0); Mean Corpuscular HGB Conc 34 g/dL (31-36); Mean Corpuscular Hemoglobin 34 pg (27-31); Mean Corpuscular Volume 99 fL (80-97); Mean Platelet Volume 8.7 fL (7.4-10.4); Platelet Count 144 10^3/uL (150-450); Red Blood Count 3.36 10^6 /uL (3.70-4.87); Red Cell Distribution Width 14 % (10-15); White Blood Count 3.5 10^3/uL (3.5-10.8)
[2019-10-04 22:17] LABS: BUN/Creatinine Ratio 35.8 (8-20); Calcium 7.8 mg/dL (8.6-10.3); EGFR African American 33.7 (>60); EGFR Non-African American 27.8 (>60)
[2019-10-05] MEDS ORDERED: NS 0.9% 1000 ml BAG 1,000 ML IV ONE (01:03)
[2019-10-05] MEDS: Lactated Ringers 1000 ml BAG 1,000 ML IV SCH ×3 (01:07→16:40)
[2019-10-05] MEDS ORDERED: Lactated Ringers 1000 ml BAG 1,000 ML IV SCH (03:35)
[2019-10-05] MEDS: ZOSYN 3.375 GM Q12H per EXTENDED INFUSION IV SCH ×2 (03:57→16:40)
[2019-10-05] MEDS: Pantoprazole VIAL 40 MG VIAL IV SCH ×2 (03:57→16:41)
[2019-10-05 04:34] LABS: Hematocrit 31 % (35-47); Hemoglobin 10.8 g/dL (12.0-16.0); Mean Corpuscular HGB Conc 34 g/dL (31-36); Mean Corpuscular Hemoglobin 34 pg (27-31); Mean Corpuscular Volume 100 fL (80-97); Platelet Count 137 10^3/uL (150-450); Red Blood Count 3.13 10^6 /uL (3.70-4.87); Red Cell Distribution Width 14 % (10-15); White Blood Count 1.9 10^3/uL (3.5-10.8)
[2019-10-05 04:51] LABS: BUN/Creatinine Ratio 42.4 (8-20); Blood Urea Nitrogen 67 mg/dL (6-24); Calcium 7.2 mg/dL (8.6-10.3); Chloride 110 mmol/L (101-111); EGFR African American 38.9 (>60); EGFR Non-African American 32.1 (>60); Glucose 85 mg/dL (70-100); Potassium 4.8 mmol/L (3.5-5.0); Sodium 132 mmol/L (135-145)
[2019-10-05 04:55] LABS: Anion Gap 9 mmol/L (2-11); CO2 Carbon Dioxide 13 mmol/L (22-32)
[2019-10-05 05:03] LABS: ABS Lymphocytes 0.1 10^3/ul (1.0-4.8); ABS Monocytes 0.2 10^3/ul (0-0.8); Eosinophil % 2.3 %; Lymphocyte % 5.7 %; Nucleated Red Blood Cells % 0.1
[2019-10-05 05:39] LABS: Folate 8.12 ng/mL (>3.99)
[2019-10-05] MEDS: Carbidopa/Levodop 25/100 MG TAB PO SCH ×5 (05:41→21:23)
[2019-10-05] MEDS: Dextran 70/Hypromellose Tears Eye Drops 15 ml BTL (for Artificials Tears) BOTH EYES SCH ×2 (09:00→21:22)
[2019-10-05] MEDS ORDERED: Norepinephrine 16MCG/ML IVPRE 4,000 MCG/250 ML BAG IV ONE (09:59)
[2019-10-05] MEDS: Norepinephrine 16MCG/ML IVPRE 4,000 MCG/250 ML BAG IV SCH ×2 (10:01→17:50)
[2019-10-05] MEDS ORDERED: Morphine 2 MG/ML SYRINGE ONE (11:13)
[2019-10-05] MEDS: Morphine 2 MG/ML SYRINGE IV PRN ×3 (11:15→19:36)
[2019-10-05] MEDS: Chlorhexidine MOUTHWASH 0.12% 15 ML UDC SWISH SPIT SCH ×4 (13:10→22:34)
[2019-10-05] MEDS: Carbidopa/Levodop CR 50/200 TAB.CR PO SCH (21:22)
[2019-10-06] MEDS: Norepinephrine 16MCG/ML IVPRE 4,000 MCG/250 ML BAG IV SCH (00:42)
[2019-10-06] MEDS: Morphine 2 MG/ML SYRINGE IV PRN ×3 (00:43→11:03)
[2019-10-06] MEDS: Pantoprazole VIAL 40 MG VIAL IV SCH ×2 (04:22→16:53)
[2019-10-06] MEDS: ZOSYN 3.375 GM Q12H per EXTENDED INFUSION IV SCH ×2 (04:24→16:53)
[2019-10-06 04:51] LABS: Hematocrit 31 % (35-47); Hemoglobin 10.8 g/dL (12.0-16.0); Mean Corpuscular HGB Conc 35 g/dL (31-36); Mean Corpuscular Hemoglobin 34 pg (27-31); Mean Corpuscular Volume 98 fL (80-97); Platelet Count 136 10^3/uL (150-450); Red Blood Count 3.18 10^6 /uL (3.70-4.87); Red Cell Distribution Width 14 % (10-15); White Blood Count 6.1 10^3/uL (3.5-10.8)
[2019-10-06 05:07] LABS: BUN/Creatinine Ratio 46.7 (8-20); Calcium 7.5 mg/dL (8.6-10.3); EGFR African American 41.3 (>60); EGFR Non-African American 34.1 (>60); Phosphorus 5.3 mg/dL (2.5-5.0)
[2019-10-06 05:19] LABS: ABS Lymphocytes 0.1 10^3/ul (1.0-4.8); ABS Monocytes 0.1 10^3/ul (0-0.8); Eosinophil % 0.4 %; Lymphocyte % 1.8 %
[2019-10-06] MEDS: Levothyroxine 100 MCG/5 ML VIAL IV SCH (05:29)
[2019-10-06] MEDS: Carbidopa/Levodop 25/100 MG TAB PO SCH ×2 (05:30→19:37)
[2019-10-06] MEDS ORDERED: Amiodarone IV 150 mg/3 ml VIAL ONE (06:52)
[2019-10-06] MEDS ORDERED: Amiodarone 360 MG IVPREMIX 360 MG/200 ML BAG IV ONE (06:52)
[2019-10-06] MEDS ORDERED: Lactated Ringers 1000 ml BAG 1,000 ML IV ONE (07:00)
[2019-10-06] MEDS ORDERED: Amiodarone DRIP* 1.8 MG/ML 200 ML IV SCH (07:30)
[2019-10-06] MEDS: Phenylephrine IV 50 MG in NS 0.9% 250 ml 245 ML IV SCH (09:06)
[2019-10-06] MEDS: Chlorhexidine MOUTHWASH 0.12% 15 ML UDC SWISH SPIT SCH ×3 (09:30→20:32)
[2019-10-06] MEDS: Lactated Ringers 1000 ml BAG 1,000 ML IV SCH ×2 (12:44→21:45)
[2019-10-06] MEDS: Dextran 70/Hypromellose Tears Eye Drops 15 ml BTL (for Artificials Tears) BOTH EYES SCH ×2 (13:15→21:46)
[2019-10-06] MEDS: Carbidopa/Levodop 25/100 MG TAB G TUBE SCH ×4 (14:02→21:46)
[2019-10-06 16:39] LABS: Adenovirus F40/41 Negative (Negative); Astrovirus Negative (Negative); Cryptosporidium species Negative (Negative); Cyclospora cayetanensis Negative (Negative); Entamoeba histolytica Negative (Negative); Enteroaggregative E.coli(EAEC) Negative (Negative); Enteropathogenic Ecoli(EPEC) Negative (Negative); Enterotoxigenic Ecoli(ETEC) Positive (Negative); Norovirus GI/GII Negative (Negative); Plesiomonas shigelloides Negative (Negative); Salmonella species Negative (Negative); Sapovirus Negative (Negative); Shiga toxin producing E. coli Negative (Negative); Shigella/Enteroinvasive E.coli Negative (Negative); Specimen Source STOOL; Vibrio cholerae Negative (Negative); Yersinia species Negative (Negative)
[2019-10-06] MEDS: Amantadine SOLN ORALSYR 10 mg/ml G TUBE SCH (16:54)
[2019-10-06] MEDS ORDERED: Amiodarone 360 MG IVPREMIX 360 MG/200 ML BAG IV SCH (17:00)
[2019-10-06 20:30] LABS: Calcium 7.7 mg/dL (8.6-10.3); EGFR African American 52.4 (>60); EGFR Non-African American 43.3 (>60); Potassium 3.6 mmol/L (3.5-5.0)
[2019-10-07] MEDS: Carbidopa/Levodop 25/100 MG TAB G TUBE SCH ×7 (00:24→21:45)
[2019-10-07] MEDS: Phenylephrine IV 50 MG in NS 0.9% 250 ml 245 ML IV SCH ×2 (00:24→16:28)
[2019-10-07] MEDS: ZOSYN 3.375 GM Q12H per EXTENDED INFUSION IV SCH ×2 (03:59→17:04)
[2019-10-07] MEDS: Pantoprazole VIAL 40 MG VIAL IV SCH ×2 (03:59→14:48)
[2019-10-07] MEDS: Morphine 2 MG/ML SYRINGE IV PRN (04:25)
[2019-10-07 04:30] LABS: Hematocrit 30 % (35-47); Hemoglobin 10.2 g/dL (12.0-16.0); Mean Corpuscular HGB Conc 35 g/dL (31-36); Mean Corpuscular Hemoglobin 34 pg (27-31); Mean Corpuscular Volume 97 fL (80-97); Mean Platelet Volume 8.9 fL (7.4-10.4); Platelet Count 73 10^3/uL (150-450); Red Blood Count 3.03 10^6 /uL (3.70-4.87); Red Cell Distribution Width 14 % (10-15); White Blood Count 3.7 10^3/uL (3.5-10.8)
[2019-10-07 04:40] LABS: BUN/Creatinine Ratio 53.8 (8-20); Calcium 7.7 mg/dL (8.6-10.3); EGFR African American 61.7 (>60); Magnesium 1.9 mg/dL (1.9-2.7); Potassium 3.5 mmol/L (3.5-5.0)
[2019-10-07 05:09] LABS: ABS Lymphocytes 0.1 10^3/ul (1.0-4.8); Eosinophil % 0.4 %; Lymphocyte % 2.4 %
[2019-10-07] MEDS: Levothyroxine 100 MCG/5 ML VIAL IV SCH (05:32)
[2019-10-07] MEDS ORDERED: Lactated Ringers 1000 ml BAG 1,000 ML IV SCH ×2 (07:46→10:30)
[2019-10-07] MEDS: Amantadine SOLN ORALSYR 10 mg/ml G TUBE SCH ×2 (09:35→17:15)
[2019-10-07] MEDS: Dextran 70/Hypromellose Tears Eye Drops 15 ml BTL (for Artificials Tears) BOTH EYES SCH ×2 (09:36→21:56)
[2019-10-07] MEDS: Chlorhexidine MOUTHWASH 0.12% 15 ML UDC SWISH SPIT SCH ×3 (09:36→21:35)
[2019-10-07] MEDS ORDERED: Metoprolol Tartrate 5 mg VIAL 5 ml VIAL (1 mg/ml) IV PRN (09:57)
[2019-10-07] MEDS: Amiodarone 400 mg TAB PO SCH ×2 (11:48→21:35)
[2019-10-07] MEDS ORDERED: TPN 24 HR with Dextrose 50% Water 500 ML, Amino Acid Infusion 10% 850 ML, Sterile Water... CENTR SCH (17:00)
[2019-10-08] MEDS: ZOSYN 3.375 GM Q12H per EXTENDED INFUSION IV SCH ×2 (00:51→11:03)
[2019-10-08] MEDS: Morphine 2 MG/ML SYRINGE IV PRN (00:51)
[2019-10-08] MEDS: Carbidopa/Levodop 25/100 MG TAB G TUBE SCH ×3 (01:02→11:04)
[2019-10-08] MEDS ORDERED: Morphine 2 MG/ML SYRINGE IV PRN ×2 (02:34→08:37)
[2019-10-08] MEDS: Pantoprazole VIAL 40 MG VIAL IV SCH (04:56)
[2019-10-08] MEDS: Levothyroxine 100 MCG/5 ML VIAL IV SCH (05:07)
[2019-10-08 06:01] LABS: Blood Urea Nitrogen 52 mg/dL (6-24); CO2 Carbon Dioxide 17 mmol/L (22-32); Calcium 7.8 mg/dL (8.6-10.3); EGFR African American 65.9 (>60); EGFR Non-African American 54.5 (>60); Glucose 143 mg/dL (70-100); Magnesium 1.8 mg/dL (1.9-2.7); Potassium 3.9 mmol/L (3.5-5.0); Sodium 140 mmol/L (135-145)
[2019-10-08 06:15] LABS: Anion Gap 7 mmol/L (2-11); Chloride 116 mmol/L (101-111)
[2019-10-08 06:19] LABS: Hematocrit 30 % (35-47); Hemoglobin 10.1 g/dL (12.0-16.0); Mean Corpuscular HGB Conc 34 g/dL (31-36); Mean Corpuscular Hemoglobin 33 pg (27-31); Mean Corpuscular Volume 98 fL (80-97); Platelet Count 56 10^3/uL (150-450); Red Blood Count 3.01 10^6 /uL (3.70-4.87); Red Cell Distribution Width 15 % (10-15); White Blood Count 6.5 10^3/uL (3.5-10.8)
[2019-10-08 06:41] LABS: Burr Cells 2+
[2019-10-08 06:43] LABS: ABS Eosinophils 0.1 10^3/ul (0-0.6)
[2019-10-08] MEDS ORDERED: Succinylcholine 200 mg VIAL 20 mg/ml 10 ml VIAL (200 mg) ONE (07:51)
[2019-10-08] MEDS ORDERED: Etomidate 40 mg/20 ml (2 MG/ML) 20 ml VIAL (40 mg) ONE (07:59)
[2019-10-08] MEDS ORDERED: Norepinephrine 16MCG/ML IVPRE 4,000 MCG/250 ML BAG IV ONE (08:06)
[2019-10-08] MEDS ORDERED: Propofol 10 mg/ml 100 ML BTL 100 ML ONE (08:06)
[2019-10-08] MEDS ORDERED: Phenylephrine IV 10 MG/ML 1 ml VIAL ONE (08:12)
[2019-10-08] MEDS ORDERED: Heparin 5000 UNITS/ML 1 mL VIAL SUBCUT SCH (08:32)
[2019-10-08] MEDS ORDERED: Dexmedetomidine 1,000 MCG in NS 0.9% 250 ml 240 ML IV SCH (09:00)
[2019-10-08] MEDS ORDERED: Propofol 10 mg/ml 100 ML BTL 100 ML IV SCH (09:00)
[2019-10-08] MEDS ORDERED: Norepinephrine 16MCG/ML IVPRE 4,000 MCG/250 ML BAG IV SCH (09:00)
[2019-10-08] MEDS: Dextran 70/Hypromellose Tears Eye Drops 15 ml BTL (for Artificials Tears) BOTH EYES SCH (09:35)
[2019-10-08] MEDS ORDERED: EPINEPHrine SYR 0.1MG/ML 10 ml SYRINGE ONE (09:44)
[2019-10-08 10:15] LABS: Troponin I 0.05 ng/mL (<0.03)
[2019-10-08] MEDS ORDERED: Midazolam 2 mg/2 ml VIAL 1 mg/ml 2 ml VIAL (2 mg) IV SLOW PU ONE (10:26)
[2019-10-08] MEDS ORDERED: Midazolam 2 mg/2 ml VIAL 1 mg/ml 2 ml VIAL (2 mg) ONE (10:27)
[2019-10-08] MEDS ORDERED: EPINEPHrine SYR 0.1MG/ML 10 ml SYRINGE IV ONE (10:30)
[2019-10-08 10:58] VITALS: BP 49/26
[2019-10-08] MEDS ORDERED: Propofol* 20 ML VIAL - FOR IV LINE PRIMING ONLY SCH (11:00)
[2019-10-08] MEDS: Amantadine SOLN ORALSYR 10 mg/ml G TUBE SCH (11:03)
[2019-10-08] MEDS: Chlorhexidine MOUTHWASH 0.12% 15 ML UDC SWISH SPIT SCH (11:03)
[2019-10-08] MEDS: Amiodarone 400 mg TAB PO SCH (11:03)
== END 2019-10-08 10:40 | disposition expired | DRG 871 ==
LOC: ED 08:35 → ICU 11:19
PROVIDERS: ADMIT Internal Medicine; ATTEND Surgery Surgical Critical Care